=== PATIENT | male | born 1955 | race African-American/Black ===

== ENCOUNTER 2018-07-13 06:00 | Day surgery (SDC) | payer MEDICARE, MEDICAID ==
[2018-07-07 08:56] LABS: BASOPHILS % (AUTO) 1.6 % (0.0-2.0); EOSINOPHILS % (AUTO) 1.9 % (0.0-3.0); HEMATOCRIT 41.5 % (42.0-52.0); LYMPHOCYTES % (AUTO) 45.1 % (20.0-45.0); MEAN CORPUSCULAR VOLUME 88 FL (80-99); MONOCYTES % (AUTO) 6.6 % (1.0-10.0); NEUTROPHILS % (AUTO) 44.9 % (45.0-75.0); PLATELET COUNT 206 K/UL (150-450); RED BLOOD COUNT 4.74 M/UL (4.70-6.10); RED CELL DISTRIBUTION WIDTH 13.5 % (11.6-14.8); WHITE BLOOD COUNT 7.1 K/UL (4.8-10.8)
[2018-07-07 09:04] LABS: ANION GAP 8 mmol/L (5-15); BLOOD UREA NITROGEN 15 mg/dL (7-18); CALCIUM 8.8 MG/DL (8.5-10.1); CARBON DIOXIDE 29 MMOL/L (21-32); CHLORIDE 105 MMOL/L (98-107); CREATININE 1.2 MG/DL (0.55-1.30); POTASSIUM 3.8 MMOL/L (3.5-5.1); SODIUM 141 MMOL/L (136-145)
--- NOTE | 2018-07-07 15:31 | Cardiology Report ---
APPROVED REPORT EKG Measurement Heart [id number] Normal sinus rhythm Possible Left atrial enlargement Left axis deviation Septal infarct, age undetermined Abnormal ECG
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
--- NOTE | 2018-07-10 09:43 | Opthalmology H&P ---
Ophthalmology H&P H&P Chief Complaint: decreased vision in right eye HPI Vision Affects Ability to: read, focus/use eyes together, manage personal affairs HPI Narrative Blurry Vision Exam Visual Acuity: OD Counting Fingers OS 20/40 Eye Exam: normal OU: external exam, palpebral fissure-width, marginal reflex distance, levator function, corneas, anterior chambers, lens; findings: fundus exam - Poor View Assessment/Plan Treatment Plan: cataract extraction w/ lens implant Goals of Treatment: improvement of vision, enhance quality of life Attestation Attestation The risks and benefits of the surgery as well as alternative procedures were explained to the patient in detail. Sergei Foster MD Jul 10, 2018 09:43
--- NOTE | 2018-07-10 09:45 | Pre-Procedure Note/Attestation ---
Pre-Procedure Note/Attestation Complete Prior to Procedure Planned Procedure: right Procedure Narrative: Cataract Extraction With Intraocular Lens Implant Right Eye Indications for Procedure Pre-Operative Diagnosis: Cataract Right Eye Attestation I attest that I discussed the nature of the procedure; its benefits; risks and complications; and alternatives (and the risks and benefits of such alternatives ), prior to the procedure, with the patient (or the patient's legal textile machinery sales representative). I attest that, if there was a reasonable possibility of needing a blood transfusion, the patient (or the patient's legal textile machinery sales representative) was given the [facility] standardized written summary, pursuant to the Suhail Slick Blood Safety Act ([place] Health and Safety Code # 1645, as amended). I attest that I re-evaluated the patient just prior to the surgery and that there has been no change in the patient's H&P, except as documented below: Sergei Foster MD Jul 10, 2018 09:45
[~2018-07-13] VITALS: Ht 170.2 cm; Wt 111.6 kg
[2018-07-13] VITALS (9 sets, daily range): BP systolic 153–171; BP diastolic 95–116
[~2018-07-13 06:00] MED LIST: ASPIRIN81 MG ORAL; NORCO 10-325 T1 EACH ORAL; SOMA350 MG PO
[2018-07-13] MEDS ORDERED: Tetracaine 0.5% Opth 4ml Soln RIGHT EYE ONE (07:00)
[2018-07-13] MEDS ORDERED: Akten 3.5% 1ml Btl RIGHT EYE ONE (07:00)
[2018-07-13] MEDS ORDERED: Proparacaine 0.5% Opth Soln 15ml RIGHT EYE ONE (07:00)
[2018-07-13] MEDS: Phenylephrine 10% Opth Soln 5ml RIGHT EYE SCH ×3 (07:34→07:57)
[2018-07-13] MEDS: Diclofenac Sod 0.1% Op Soln RIGHT EYE SCH ×3 (07:34→07:57)
[2018-07-13] MEDS: Cyclopentolate 1% Opth Sol 2ml RIGHT EYE SCH ×3 (07:34→07:57)
[2018-07-13] MEDS: Tropicamide 1% Opth 15ml Soln RIGHT EYE SCH ×3 (07:35→07:56)
[2018-07-13] MEDS: Tobramycin Op Soln 0.3% 5ml RIGHT EYE SCH ×3 (07:35→07:57)
[2018-07-13] MEDS ORDERED: Maxitrol Opth Oint 3.5gm ONE (09:00)
[2018-07-13] MEDS ORDERED: Dexamethasone 4mg/ml vial ONE (09:00)
[2018-07-13] MEDS ORDERED: Pred Forte 1% Opth Susp 1ml ONE (09:00)
[2018-07-13] MEDS ORDERED: EPINEPHrine 1mg/1ml Amp ONE (09:25)
[2018-07-13] MEDS ORDERED: BSS 500ml btl ONE (09:26)
[2018-07-13] MEDS ORDERED: Sodium Hyaluronate 14 mg/ml 0.85ml ONE (09:26)
[2018-07-13] MEDS ORDERED: Povidone-Iodine 5% opth solution ONE (09:26)
[2018-07-13] MEDS ORDERED: BSS 15ml BTL ONE (09:26)
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
[2018-07-13] MEDS ORDERED: LR 1000ml 1,000 ML IVLG SCH (09:30)
[2018-07-13] MEDS ORDERED: DiphenhydrAMINE 50mg/ml Inj IVP PRN (09:30)
[2018-07-13] MEDS ORDERED: Meperidine 50mg/ml Inj(FOR RIGORS ONLY) IV PRN (09:30)
[2018-07-13] MEDS ORDERED: fentaNYL 100 mcg/2 mL IV ONE (09:31)
[2018-07-13] MEDS ORDERED: acetaZOLAMIDE 500mg Inj ONE (09:56)
[2018-07-13] MEDS ORDERED: Propofol 200mg/20ml IV ONE (09:58)
[2018-07-13] MEDS ORDERED: LR 1000ml ONE (09:58)
[2018-07-13] MEDS ORDERED: Sterile Water Irrig 1000ml IRRIG ONE (09:58)
[2018-07-13] MEDS ORDERED: Midazolam 2mg/2ml Inj ONE (09:58)
[2018-07-13] MEDS ORDERED: NS Irrig 1000ml ONE (09:58)
--- NOTE | 2018-07-13 10:35 | Immediate Post-Op Evaluation ---
Immediate Post-Op Evalulation Immediate Post-Op Evalulation Procedure: R eye cataract extraction with IOL Date of Evaluation: Jul 13, 2018 Time of Evaluation: 10:34 IV Fluids: 200 Blood Products: none Estimated Blood Loss: none Urinary Output: none Blood Pressure Systolic: 163 Blood Pressure Diastolic: 91 Pulse Rate: 76 Respiratory Rate: 20 O2 Sat by Pulse Oximetry: 99 Temperature (Fahrenheit): 97.6 Pain Score (1-10): 1 Nausea: No Vomiting: No Complications none Patient Status: awake, patent, none Hydration Status: adequate Tomas Phillip MD Jul 13, 2018 10:34
--- NOTE | 2018-07-13 12:01 | 48 Hour Post Anesthesia Eval ---
Post Anesthesia Evaluation Procedure: R eye cataract extraction with IOL Date of Evaluation: Jul 13, 2018 Time of Evaluation: 12:00 Blood Pressure Systolic: 162 0: 95 Pulse Rate: 74 Respiratory Rate: 20 Temperature (Fahrenheit): 97.6 O2 Sat by Pulse Oximetry: 98 Airway: patent Nausea: No Vomiting: No Pain Intensity: 1 Hydration Status: adequate Cardiopulmonary Status: stable Mental Status/LOC: patient returned to baseline Follow-up Care/Observations: n/a Post-Anesthesia Complications: none Follow-up care needed: ready to discharge Tomas Phillip MD Jul 13, 2018 12:01
--- NOTE | 2018-07-14 12:41 | Brief Operative Note ---
Immediate Post Operative Note Operative Note Chief Complaint: blurry vision Pre-op Diagnosis: Dense Cataract Right Eye Post-op Diagnosis: Pseudophakia Post-op Diagnosis: same as pre-op Findings: consistent w/pre-op dx studies Surgeon: Kristin Anesthesiologist: Marjan Anesthesia: MAC Specimen: none Complications: none Condition: stable Fluids: LR Estimated Blood Loss: none Drains: none Implant(s) used?: Yes Sergei Foster MD Jul 14, 2018 12:41
--- NOTE | 2018-07-14 12:42 | Operative Note - PDOC ---
Operative Note Operative Note Date of Operation/Procedure: Jul 13, 2018 Chief Complaint: blurry vision Pre-op Diagnosis: Dense Cataract Right Eye Post-op Diagnosis: Pseudophakia Post-op Diagnosis: same as pre-op Operative Findings: consistent w/pre-op dx studies Surgeon: Kristin Anesthesiologist: Marjan Anesthesia: MAC Specimen: none Complications: none Condition: stable Fluids: LR Estimated Blood Loss: none Drains: none Implant(s) used?: Yes Indications for Procedure Dense Cataract Description of Procedure This patient has been complaining visually significant cataract in the affected eye with the best corrected visual acuity under moderate glare conditions worse. The patient complains of difficulties with glare in performing activities of daily living and wants to manage personal affairs with comfort and accuracy and see well enough to move with safety at home and outdoors. The risks, benefits and alternatives of the procedure were discussed with the patient in the office prior to scheduling surgery. All questions from the patient were answered after the surgical procedure was explained in detail. The risks of the procedure as explained to the patient include, but are not limited to, pain, infection, bleeding, loss of vision, retinal detachment, need for further surgery, loss of lens nucleus, double vision, etc. Alternative procedures were discussed which include, to do nothing or seek a second opinion. Informed consent for this procedure was obtained from the patient. The patient was referred to a primary care physician for a cardiopulmonary clearance prior to surgery, after proper evaluation was done patient was properly scheduled for outpatient surgery. The patient was brought to the operating room where the anesthesiologist established I.V. lines and cardiac monitoring leads. Mild intravenous sedation was administered. The patient was then prepared with a 5% solution of povidone -iodine to the conjunctival fornix and lashes, and a 5% solution of povidone- iodine to the lids and periorbital skin. The patient was then draped in the usual sterile fashion. A lid speculum was then placed in the operative eye. A keratome blade was then used to create a biplanar incision into the anterior chamber. Viscoelastics was then instilled into the anterior chamber. A capsulorrhexis was then fashioned with an utrata forceps followed by hydrodissection and hydro delineation of the dense lens nucleus. Paracentesis incision was made at 3 o'clock with sharp blade. The phacoemulsification unit, after being properly adjusted and tested, was then used to emulsify the dense nucleus followed by aspiration and irrigation of residual cortical material. Healon was then instilled into the anterior chamber. The corneal wound was then enlarged to the size of the optic with the glynn keratome blade. The intraocular lens was then inspected for right power and size and thought to be satisfactory. Then the lens was gently placed in the capsular bag. Positioning within the capsular bag was confirmed by direct visualization. Optic centration was accomplished with a Sinskey hook. Viscoelastics was removed from the anterior chamber using the irrigation and aspiration unit. The corneal wound was then tested for leaks and none were found. The lid speculum were then removed. Sponge and needle counts were correct. An eye patch and shield were placed over the operative eye. The patient was taken to the recovery room in stable condition. There were no complications. The patient tolerated the procedure well. The patient was then transferred to the ambulatory surgery unit in stable and satisfactory condition , was given detailed written instructions and asked to follow up in the office the next day. Sergei Foster MD Jul 14, 2018 12:42
== END 2018-07-13 11:30 | disposition home or self-care (01) ==
LOC: SUR 06:00
DX: H25.11 Age-related nuclear cataract, right eye (principal); I10 Essential (primary) hypertension; E66.9 Obesity, unspecified; Z68.38 Body mass index [BMI] 38.0-38.9, adult; F17.210 Nicotine dependence, cigarettes, uncomplicated; K21.9 Gastro-esophageal reflux disease without esophagitis; M19.90 Unspecified osteoarthritis, unspecified site; G47.33 Obstructive sleep apnea (adult) (pediatric)
CPT/HCPCS: 36415; 66984; 80048; 85025; 93005; J0171; J1100; J1120; J2250; J2704; J3010; J3370; V2632; 94003; 94150